=== PATIENT | male | born 1940 | race Caucasian/White ===

== ENCOUNTER 2018-02-02 07:30 | Outpatient (CLI) | payer OTHER | END 2018-02-02 09:33 | disposition home or self-care (01) | LOC: LAB 07:30 | DX: R73.03 Prediabetes (principal); I48.0 Paroxysmal atrial fibrillation; E78.4 Other hyperlipidemia ==

== ENCOUNTER 2018-10-20 15:48 | Outpatient (CLI) | payer OTHER | END 2018-10-20 15:54 | disposition home or self-care (01) | LOC: RAD 15:48 | DX: M79.674 Pain in right toe(s) (principal) ==

== ENCOUNTER 2024-12-25 10:50 | Emergency (ER) | payer OTHER ==
[~2024-12-25] VITALS: Ht 165.1 cm; Wt 90.7 kg
[2024-12-25] MEDS ORDERED: VALSARTAN4 MG/1 ML (11:14)
[2024-12-25] MEDS ORDERED: PROZAC20 MG (11:14)
[2024-12-25] MEDS ORDERED: EXELON1 EACH (11:15)
[2024-12-25] MEDS ORDERED: ELIQUIS5 MG (11:16)
[2024-12-25] MEDS ORDERED: TENORMIN25 MG (11:16)
[2024-12-25] MEDS ORDERED: LIPITOR40 M1 (11:16)
[2024-12-25] MEDS ORDERED: LASIX20 MG (11:16)
[2024-12-25] MEDS ORDERED: LevETIRAcetam 500 MG/5 ML VIAL IV SCH (12:42)
[2024-12-25] MEDS ORDERED: LevETIRAcetam 500 MG/5 ML VIAL IV ONE (12:54)
[2024-12-25 13:38] LABS: HEMATOCRIT 40.4 % (39.0-48.0); HEMOGLOBIN 13.7 g/dL (13-16.00); MEAN CELL VOLUME 89.3 fL (80.0-100.00); MEAN CORPUSCULAR HEMOGLOBIN 30.3 pg (27.00-32.0); PLATELET COUNT 137 K/uL (150-450); RED BLOOD COUNT 4.52 M/uL (4.00-6.00); RED CELL DISTRIBUTION WIDTH 14.3 % (11.5-14.5)
[2024-12-25 14:33] LABS: ALBUMIN 3.1 gm/dL (3.4-5.0); BILIRUBIN TOTAL 0.6 mg/dL (0.3-1.2); CALCIUM 8.9 mg/dL (8.5-10.1); CREATININE SERUM 1.43 mg/dL (0.70-1.30); GLOBULINA 3.2 G/DL (2.4-3.5); POTASSIUM 4.71 mEq/L (3.5-5.1); TOTAL PROTEIN 6.3 gm/dL (6.4-8.2)
[2024-12-25 15:53] LABS: URINE APPEARANCE Clear; URINE BILIRRUBIN Negative (NEGATIVE); URINE BLOOD Negative; URINE COLOR Yellow; URINE GLUCOSE Negative (NEGATIVE); URINE KETONE Negative (NEGATIVE); URINE LEUKOCYTE Negative; URINE NITRATE Negative; URINE PROTEIN Negative (NEGATIVE); URINE UROBILINOGEN 0.2 E.U./dl
[2024-12-25 15:59] LABS: URINE BACTERIA 288.7 uL (0.0-1933); URINE CAST 2.79 uL (0.0-1.40); URINE EPITHELIAL CELLS 4.4 uL (0.0-38.8); URINE RBC 16.6 uL (0.0-20.8); URINE WBC 13.2 uL (0.0-23.2)
[2024-12-25] MEDS ORDERED: 0.9 % SODIUM CHLORIDE 1,000 ML IV ONE (16:00)
[2024-12-25 16:10] LABS: URINE MUCUS MODERATE
== END 2024-12-25 22:17 | disposition home or self-care (01) ==
LOC: ER 10:50
PROVIDERS: General Practice
DX: R56.9 Unspecified convulsions (principal); R55 Syncope and collapse; Z20.822 Contact with and (suspected) exposure to COVID-19; I10 Essential (primary) hypertension; Z88.1 Allergy status to other antibiotic agents; Z88.2 Allergy status to sulfonamides
CPT/HCPCS: 36415; 70460; 71045; 93005; 96365; 96366; 99284; J3490; J7030; Q9965

== ENCOUNTER 2025-06-20 19:07 | Inpatient (IN) | payer OTHER ==
[~2025-06-20] VITALS: Ht 180.3 cm; Wt 97.5 kg
[~2025-06-20 19:07] MED LIST: ELIQUIS5 MG; EXELON1 EACH; LASIX20 MG; LIPITOR40 M1; PROZAC20 MG; TENORMIN25 MG; VALSARTAN4 MG/1 ML
[2025-06-20] MEDS ORDERED: LEVALBUTEROL HCL 1.25 MG/3 ML SOLUTION IH ONE (20:13)
[2025-06-20] MEDS ORDERED: IPRATROPIUM BROMIDE 0.5 MG/2.5 ML AMPUL.NEB IH ONE (20:13)
[2025-06-20] MEDS ORDERED: GUAIFENESIN/DEXTROMETHORPHAN 100MG/10ML BLIST.PACK PO ONE ×2 (20:15→20:26)
[2025-06-20] MEDS ORDERED: IPRATROPIUM BROMIDE 0.5 MG/2.5 ML AMPUL.NEB IH SCH ×2 (20:15→22:18)
[2025-06-20] MEDS ORDERED: LEVALBUTEROL HCL 1.25 MG/3 ML SOLUTION IH SCH ×2 (20:15→22:18)
[2025-06-20 20:46] LABS: BASO % 0.2 % (0.1-1.2); EOS # 0.02 (0.04-0.54); EOS % 0.1 % (0.7-7.0); LYMPH # 0.64 (1.18-3.74); LYMPH % 3.2 % (19.3-53.1); MEAN PLATELET VOLUME 10.60 fl (9.4-12.4); MONO # 0.80 (0.24-0.82); MONO % 4.0 % (4.7-12.5); NEUT # 18.44 (1.56-6.13); NEUT % 92.1 % (34.0-71.1); RED CELL DISTRIBUTION WIDTH 13.5 % (11.6-14.4)
[2025-06-20 21:12] LABS: ALT/SGPT 22.0 U/L (12-78); AST/SGOT 21.0 U/L (15-37); BILIRUBIN TOTAL 0.85 mg/dL (0.3-1.2); BUN CREA RATIO 22.0 (7.0-25.0); CREATININE SERUM 1.62 mg/dL (0.70-1.30); GFR 40.6; GLOBULINA 4.3 G/DL (2.4-3.5); GLUCOSE FASTING 117.0 mg/dL (65-100); OSMOLALITY SERUM 287.0 MOSM/KG (275-295)
[2025-06-20] MEDS ORDERED: levoFLOXacin IN DEXTROSE 5 % 500MG/100ML PIGGYBAG IV ONE ×2 (21:31→21:45)
[2025-06-20 22:01] LABS: ABG PH 7.334 (7.35-7.45); BICARBONATE 18.2 mmol/l (23-25); o2 21 %
[2025-06-20 22:02] LABS: ABG PO2 65.3 mmHg (80-100)
[2025-06-20 22:12] LABS: COVID-19 AG NEGATIVE (NEGATIVE)
[2025-06-20] MEDS ORDERED: GUAIFEN/DEXTROMETHORPHAN/PE 10 ML BLIST.PACK PO SCH (22:19)
[2025-06-20] MEDS ORDERED: ONDANSETRON HCL 4 MG in 0.9 % SODIUM CHLORIDE 50 ML IV PRN (22:30)
[2025-06-20] MEDS ORDERED: 0.9 % SODIUM CHLORIDE 1,000 ML IV SCH (22:30)
[2025-06-20] MEDS ORDERED: ACETAMINOPHEN 500 MG GEL..CAP PO PRN (22:30)
[2025-06-20] MEDS ORDERED: METHYLPREDNISOLONE SOD SUCC 125 MG VIAL IV ONE (22:30)
[2025-06-21] MEDS ORDERED: GUAIFEN/DEXTROMETHORPHAN/PE 10 ML BLIST.PACK PO ONE ×2 (01:58→06:40)
[2025-06-21] MEDS ORDERED: METHYLPREDNISOLONE SOD SUCC 125 MG VIAL ONE (01:58)
[2025-06-21] MEDS ORDERED: ACETAMINOPHEN 160MG/5 ML BLIST.PACK PO ONE (02:11)
[2025-06-21] MEDS ORDERED: LEVALBUTEROL HCL 1.25 MG/3 ML SOLUTION IH ONE ×2 (03:40→09:48)
[2025-06-21] MEDS ORDERED: IPRATROPIUM BROMIDE 0.5 MG/2.5 ML AMPUL.NEB IH ONE ×2 (03:41→09:49)
[2025-06-21 05:08] LABS: INR 1.31
[2025-06-21 05:20] VITALS: BP 98/65; O2SAT 100
[2025-06-21 07:33] VITALS: BP 105/59; O2SAT 100
[2025-06-21] MEDS ORDERED: ENOXAPARIN SODIUM 40 MG/0.4 ML SYRINGE SUBCUTANEO SCH (09:00)
[2025-06-21] MEDS ORDERED: ATORVASTATIN CALCIUM 40 MG TABLET PO SCH (09:00)
[2025-06-21 16:50] VITALS: O2SAT 98
[2025-06-21] MEDS ORDERED: CEFTRIAXONE SODIUM 2,000 MG VIAL IV SCH (17:00)
[2025-06-21 17:18] VITALS: BP 100/79
[2025-06-21] MEDS ORDERED: DOXYCYCLINE HYCLATE 100MG IV ONE (20:21)
[2025-06-21] MEDS ORDERED: DOXYCYCLINE HYCLATE 100MG IV SCH (21:00)
[2025-06-21 21:34] VITALS: O2SAT 98
[2025-06-22] VITALS (7 sets, daily range): BP systolic 104–155; BP diastolic 80–95; O2SAT 97–100
[2025-06-22 03:31] LABS: URINE APPEARANCE Clear; URINE BILIRRUBIN Negative (NEGATIVE); URINE BLOOD Negative; URINE COLOR Yellow; URINE GLUCOSE Negative (NEGATIVE); URINE KETONE Trace (NEGATIVE); URINE LEUKOCYTE Negative; URINE NITRATE Negative; URINE PROTEIN Trace (NEGATIVE); URINE UROBILINOGEN 0.2 E.U./dl
[2025-06-22 03:35] LABS: URINE BACTERIA 1042.7 uL (0.0-1933); URINE CAST 5.42 uL (0.0-1.40); URINE EPITHELIAL CELLS 12.6 uL (0.0-38.8); URINE RBC 15.9 uL (0.0-20.8); URINE WBC 5.8 uL (0.0-23.2)
[2025-06-22 03:43] LABS: URINE CRYSTALS FEW /HPF
[2025-06-22 04:52] LABS: BASO % 0.1 % (0.1-1.2); EOS # 0.00 (0.04-0.54); EOS % 0.0 % (0.7-7.0); LYMPH # 0.65 (1.18-3.74); LYMPH % 3.4 % (19.3-53.1); MEAN PLATELET VOLUME 10.60 fl (9.4-12.4); MONO # 1.66 (0.24-0.82); MONO % 8.7 % (4.7-12.5); NEUT # 16.60 (1.56-6.13); NEUT % 87.3 % (34.0-71.1); RED CELL DISTRIBUTION WIDTH 13.9 % (11.6-14.4)
[2025-06-22 05:26] LABS: ALT/SGPT 24.0 U/L (12-78); AST/SGOT 31.0 U/L (15-37); BILIRUBIN TOTAL 0.38 mg/dL (0.3-1.2); BUN CREA RATIO 26.0 (7.0-25.0); CREATININE SERUM 2.12 mg/dL (0.70-1.30); GFR 29.77; GLOBULINA 3.5 G/DL (2.4-3.5); GLUCOSE FASTING 99.0 mg/dL (65-100); OSMOLALITY SERUM 295.0 MOSM/KG (275-295)
[2025-06-22] MEDS ORDERED: DOXYCYCLINE HYCLATE 100MG IV ONE ×2 (08:30→19:10)
[2025-06-22] MEDS ORDERED: METOPROLOL SUCCINATE 25 MG TAB.SR.24H PO SCH ×2 (09:00→17:00)
[2025-06-22] MEDS ORDERED: LEVALBUTEROL HCL 0.63 MG/3 ML SOLUTION IH SCH (19:40)
[2025-06-23] VITALS (7 sets, daily range): BP systolic 94–124; BP diastolic 59–86; O2SAT 96–99
[2025-06-23 05:16] LABS: BASO % 0.1 % (0.1-1.2); EOS # 0.05 (0.04-0.54); EOS % 0.5 % (0.7-7.0); LYMPH # 0.79 (1.18-3.74); LYMPH % 7.3 % (19.3-53.1); MEAN PLATELET VOLUME 10.60 fl (9.4-12.4); MONO # 0.89 (0.24-0.82); MONO % 8.3 % (4.7-12.5); NEUT # 9.01 (1.56-6.13); NEUT % 83.6 % (34.0-71.1); RED CELL DISTRIBUTION WIDTH 13.6 % (11.6-14.4)
[2025-06-23 05:41] LABS: ALT/SGPT 31.0 U/L (12-78); AST/SGOT 46.0 U/L (15-37); BILIRUBIN TOTAL 0.44 mg/dL (0.3-1.2); BUN CREA RATIO 27.0 (7.0-25.0); CREATININE SERUM 1.68 mg/dL (0.70-1.30); GFR 38.93; GLOBULINA 3.2 G/DL (2.4-3.5); GLUCOSE FASTING 103.0 mg/dL (65-100); OSMOLALITY SERUM 297.0 MOSM/KG (275-295)
[2025-06-23] MEDS ORDERED: DOXYCYCLINE HYCLATE 100MG IV ONE ×2 (07:54→15:59)
[2025-06-23] MEDS ORDERED: METOPROLOL SUCCINATE 25 MG TAB.SR.24H PO SCH (09:00)
[2025-06-24] VITALS (8 sets, daily range): BP systolic 110–116; BP diastolic 79–82; O2SAT 98–100
[2025-06-24] MEDS ORDERED: DOXYCYCLINE HYCLATE 100MG IV ONE ×3 (07:51→18:56)
[2025-06-25] VITALS (9 sets, daily range): BP systolic 119–137; BP diastolic 69–85; O2SAT 96–100
[2025-06-25 08:05] LABS: BASO % 0.3 % (0.1-1.2); EOS # 0.15 (0.04-0.54); EOS % 1.5 % (0.7-7.0); LYMPH # 0.77 (1.18-3.74); LYMPH % 7.6 % (19.3-53.1); MEAN PLATELET VOLUME 11.00 fl (9.4-12.4); MONO # 1.01 (0.24-0.82); MONO % 10.0 % (4.7-12.5); NEUT # 8.09 (1.56-6.13); NEUT % 80.0 % (34.0-71.1); RED CELL DISTRIBUTION WIDTH 13.7 % (11.6-14.4)
[2025-06-25 08:11] LABS: ALT/SGPT 38.0 U/L (12-78); AST/SGOT 34.0 U/L (15-37); BILIRUBIN TOTAL 0.76 mg/dL (0.3-1.2); BUN CREA RATIO 19.0 (7.0-25.0); CREATININE SERUM 1.29 mg/dL (0.70-1.30); GFR 52.81; GLOBULINA 3.0 G/DL (2.4-3.5); GLUCOSE FASTING 85.0 mg/dL (65-100); OSMOLALITY SERUM 289.0 MOSM/KG (275-295)
[2025-06-25] MEDS ORDERED: DOXYCYCLINE HYCLATE 100MG IV ONE ×2 (08:36→19:43)
[2025-06-26] VITALS (7 sets, daily range): BP systolic 110–122; BP diastolic 66–81; O2SAT 96–100
[2025-06-26] MEDS ORDERED: DOXYCYCLINE HYCLATE 100MG IV ONE ×2 (07:34→19:39)
[2025-06-27 02:00] VITALS: BP 146/80; O2SAT 96
[2025-06-27 05:06] VITALS: O2SAT 96
[2025-06-27 08:35] VITALS: O2SAT 98
[2025-06-27 09:07] VITALS: BP 106/77
== END 2025-06-27 15:02 | disposition home or self-care (01) | DRG 193 ==
LOC: ER 19:07 → SEC-K 22:22 → MEDI 22:22 → SEC-K 06-21 03:55 → MEDI 06-21 14:21 → MEDJ 06-24 18:30
PROVIDERS: General Practice; Internal Medicine Infectious Disease; ADMIT Internal Medicine; ATTEND Internal Medicine
PROC: BW24ZZZ Computerized Tomography (CT Scan) of Chest and Abdomen (ICD-10-PCS; 2025-06-20)
PROC: 4A12X4Z Monitoring of Cardiac Electrical Activity, External Approach (ICD-10-PCS; principal; 2025-06-21)
DX: J18.9 Pneumonia, unspecified organism (principal); A41.9 Sepsis, unspecified organism; N17.9 Acute kidney failure, unspecified; I48.91 Unspecified atrial fibrillation; R13.19 Other dysphagia; G31.09 Other frontotemporal neurocognitive disorder; F02.80 Dementia in other diseases classified elsewhere, unspecified severity, without behavioral disturbance, psychotic disturbance, mood disturbance, and anxiety; I13.10 Hypertensive heart and chronic kidney disease without heart failure, with stage 1 through stage 4 chronic kidney disease, or unspecified chronic kidney disease; N18.9 Chronic kidney disease, unspecified; N28.1 Cyst of kidney, acquired; E78.5 Hyperlipidemia, unspecified